=== PATIENT | female | born 1970 | race Caucasian/White ===

== ENCOUNTER 2021-09-22 00:44 | Emergency (ER) | payer SELFPAY ==
--- NOTE | ~2021-09-22 | XR_ITS ---
XR chest 2V DATE: 09/22/2021 01:43 INDICATION: Midsternal chest pain. History of coronary disease, stents. TECHNIQUE: PA and lateral views COMPARISON: None FINDINGS: Normal heart size. There is right hilar prominence. Comparison with prior chest radiograph is recommended. If not available, consider CT thorax. No pulmonary infiltrate or consolidation, pleural effusion or pulmonary vascular congestion or pneumo thorax. IMPRESSION: Asymmetric prominence of the right hilum; recommend comparison with prior chest radiograp hs. If not available, consider CT thorax Otherwise no active cardiopulmonary disease Reviewed, dictated and finalized at location A. [employer] IMPRESSION: Asymmetric prominence of the right hilum; recommend comparison with prior chest radiographs. If not available, consider CT thorax Otherwise no active cardiopulmonary disease
--- NOTE | 2021-09-22 01:04 | ECG_ITS ---
Measurements Intervals [place] Rate: 79 P: 44 SD: 175 QRS: 24 QRSD: 97 T: 9 QT: 393 QTc: 451 Interpretive Statements SINUS RHYTHM CONSIDER INFERIOR INFARCT, AGE INDETERMINATE BORDERLINE T WAVE ABNORMALITY- ANTERIOR LEADS BASELINE ARTIFACT- I, II, III, AVR, AVL, AVF, V1-V2 ABNORMAL ECG Electronically Signed On 09-22-2021 9:02:21 [employer] by Nilson Gaona D.O.
[2021-09-22 01:05] VITALS: BP 142/84; PULSE 77; RESP 18; O2SAT 100
[2021-09-22 01:14] VITALS: PULSE 67
[2021-09-22 01:29] LABS: Basophils Absolute Auto 0.1 K/mm3 (0.0-0.1); Basophils Percent Auto 0.5 % (0.2-1.2); Eosinophils Absolute Auto 0.2 K/mm3 (0-0.3); Eosinophils Percent Auto 1.4 % (0-4.4); Hematocrit 40.3 % (37.0-47.0); Hemoglobin 12.3 g/dL (12.0-15.0); Immature Granulocyte Absolute 0.06 K/mm3 (0.00-0.031); Immature Granulocyte Percent A 0.5 % (0-0.5); Lymphocytes Absolute Auto 1.55 K/mm3 (0.9-3.2); Lymphocytes Percent Auto 13.4 % (18.3-44.2); Mean Corpuscular HGB Conc 30.5 g/dl (32-36); Mean Corpuscular Hemoglobin 24.5 pg (26-34); Mean Corpuscular Volume 80.1 fl (80-100); Mean Platelet Volume 9.5 fl (7.4-10.4); Monocytes Absolute Auto 0.8 K/mm3 (0.1-0.6); Monocytes Percent Auto 6.6 % (2.6-8.5); Neutrophils Percent Auto 77.6 % (45.5-73.1); Platelet Count Result 301 k/mm3 (150-375); Red Blood Count 5.03 M/mm3 (4.2-5.4); Red Cell Distribution Width 17.9 % (11.5-14.5); White Blood Count 11.6 K/mm3 (4.5-10.0)
[2021-09-22 01:39] LABS: INR 0.9; Prothrombin Time 12.4 Seconds (11.1-14.7)
[2021-09-22 01:40] LABS: Partial Thromboplastin Time 30.7 SECONDS (22.3-36.8)
[2021-09-22 01:43] LABS: Alanine Aminotransferase 19 U/L (4-35); Albumin Level 3.8 g/dL (3.5-5.1); Alkaline Phosphatase 130 U/L (38-126); Anion Gap 3 mmol/L (8-16); Aspartate Amino Transferase 28 U/L (14-36); Bilirubin,Total 0.2 mg/dL (0.2-1.3); Blood Urea Nitrogen 8 mg/dL (7-17); Carbon Dioxide 29 mmol/L (22-30); Chloride 102 mmol/L (98-107); Estimated CRCL calculation 121 ml/min; Estimated Glomerular Filt Rate > 60; Glucose 132 mg/dL (65-110); Lipase 32 U/L (23-300); Potassium 3.8 mmol/L (3.4-5.0); Sodium 134 mmol/L (137-145)
[2021-09-22 01:53] LABS: Troponin I 0.013 ng/mL (0.000-0.034)
--- NOTE | 2021-09-22 02:11 | ED.CHESTPAIN ---
HPI - Chest Pain General Chief Complaint: Chest Pain Stated Complaint: CHEST PAIN Time Seen by Provider: 09/22/21 01:11 History of Present Illness HPI narrative: Patient is a 51-year-old female who presents ER with central chest pain. Sudden onset and sharp. No radiation. Reports history of NH with stenting 2 years ago in [place]. Reports she just moved to the area 1 month ago. She took nitroglycerin which alleviated her discomfort. No exertional chest pain. She was at rest when symptoms began. She has not establish care in this region. Patient also has a large leg wound to the left torrez that she keeps covering and does not want evaluated. She reports she tripped and fell and suffered injury 3 months ago and has not yet healed. She reports she has not sought care in regards to this leg wound. She denies all other medical problems and tries to avoid answering questions. Related Data Home Medications Medication Instructions Recorded Confirmed No Home Medications 09/22/21 09/22/21 Allergies Allergy/AdvReac Type Severity Reaction Status Date / Time No Known Allergies Allergy Verified 09/22/21 01:16 Review of Systems Review of Systems: All systems reviewed & are unremarkable except as noted in HPI and below Constitutional: Constitutional: Denies chills and Denies fever(s) Cardiovascular: Cardiovascular: Reports chest pain, Denies rapid heart rate and Denies radiating jaw, neck or arm pain Respiratory: Respiratory: Denies cough, Denies dyspnea and Denies wheezing Gastrointestinal: Gastrointestinal: Denies abdominal pain, Denies nausea and Denies vomiting Musculoskeletal: Musculoskeletal: Denies back pain and Denies muscle cramps Integumentary/Breasts: Skin/Breast: Denies erythema, Denies rash and Reports skin ulcer PMFSH Past Medical History Medical History (Updated 09/22/21 @ 02:21 by Parker Chavez MD) Coronary artery disease Surgical History Surgical History (Updated 09/22/21 @ 02:21 by Parker Chavez MD) History of percutaneous coronary intervention Social History Social History (Updated 09/22/21 @ 02:21 by Parker Chavez MD) Smoking status: Never smoker Exam Narrative: GENERAL: Well-appearing, well-nourished, and in no acute distress. HEAD: Normocephalic, atraumatic. ENT: Mucous membranes moist. CHEST: Clear to auscultation. No respiratory distress. HEART: Regular rate and rhythm. No murmur heard. Normal peripheral pulses. ABDOMEN: Soft, nontender, nondistended, normal active bowel sounds. EXTREMITIES: Normal range of motion. No edema. SKIN: Warm, dry, no rash. Large ulcerating wound to the left torrez that is chronic with some darkening of the skin surrounding it. Approximately 8 cm in diameter. NEURO: Alert and oriented x3. PSYCH: Normal mood and affect. Course Course Emergency Course: Patient up trying to ambulate her gas out of the ER. As patient go back to her room and have the patient just walk out on her own due to the fact that there are multiple critical patients in the ER. Patient prefers to leave AGAINST MEDICAL ADVICE and would like her dismissal paperwork. Patient was advised of risks of , disability, deterioration of condition. She signed paperwork understanding these risks. Vital Signs Vital signs: Vital Signs Pulse Rate 77 09/22/21 01:05 Respiratory Rate 18 09/22/21 01:05 Blood Pressure 142/84 H 09/22/21 01:05 Pulse Oximetry 100 09/22/21 01:05 Pulse Rate 77 09/22/21 01:05 Respiratory Rate 18 09/22/21 01:05 Blood Pressure 142/84 H 09/22/21 01:05 Pulse Oximetry 100 09/22/21 01:05 MDM - Chest Pain Lab Data Result diagrams: 09/22/21 01:24 09/22/21 01:23 Labs: Lab Results 09/22/21 09/22/21 09/22/21 Range/Units 01:23 01:23 01:24 WBC 11.6 H (4.5-10.0) K/mm3 RBC 5.03 (4.2-5.4) M/mm3 Hgb 12.3 (12.0-15.0) g/dL Hct 40.3 (37.0-47.0) % MCV 80.1 (80-1
--- NOTE | 2021-09-22 02:20 | PC.NURSE ---
Pt unhooked from monitoring equipment to use restroom, then was seen by ED MD leaving dept with sister. Pt initially said she was not leaving, then stated she wanted to leave. AMA form signed by pt, who verbalized understanding of risks of leaving ama.
== END 2021-09-22 02:28 | disposition left against medical advice (07) ==
PROVIDERS: Emergency Provider Emergency Medicine
DX: R07.9 Chest pain, unspecified (principal); I25.2 Old myocardial infarction; I25.10 Atherosclerotic heart disease of native coronary artery without angina pectoris; Z95.5 Presence of coronary angioplasty implant and graft; R94.31 Abnormal electrocardiogram [ECG] [EKG]
CPT/HCPCS: 36415; 71046; 80053; 83690; 84484; 85025; 85610; 85730; 93005; 99284

== ENCOUNTER 2021-10-01 14:56 | Emergency (ER) | payer SELFPAY ==
[2021-10-01 15:05] VITALS: BP 156/36; PULSE 0; RESP 16; O2SAT 73
--- NOTE | 2021-10-01 15:35 | PC.NURSE ---
SEE CODE SHEET
--- NOTE | 2021-10-01 16:07 | ED.CPR ---
HPI - CPR General Chief Complaint: Cardiac Arrest/CPR Stated Complaint: AMB Source: EMS and RN notes reviewed Mode of arrival: EMS Limitations: physical limitation History of Present Illness HPI narrative: sister reports patient had chest pain 30 minutes prior to her being found down. She apparently had taken a nitroglycerin at home. complaint: found unresponsive and stopped breathing Onset (ago): unknown Place: home Bystander CPR performed: No AED applied by bystander/chief creative officer: No Initial findings in the field: unresponsive, no respirations, no pulse and VTACH/VFIB ROSC in the field: No Associated injuries: No Associated symptoms: chest pain Known history of: CAD and GA Treatments prior to arrival: BMV, other airway device, chest compressions, defibrillated shocks # (5) and epinephrine mgs # (4) Related Data Home Medications Medication Instructions Recorded Confirmed Baby Aspirin 81 mg PO DAILY 10/01/21 10/01/21 nitroglycerin 0.4 mg PO PRN 10/01/21 10/01/21 Allergies Allergy/AdvReac Type Severity Reaction Status Date / Time No Known Allergies Allergy Unverified 10/01/21 15:23 Review of Systems Review of Systems: ROS unobtainable: Yes unobtainable due to medical condition [facility] Past Medical History Medical History (Updated 10/01/21 @ 16:33 by Phong Tobar MD) Coronary artery disease Morbid obesity Surgical History Surgical History History of percutaneous coronary intervention Social History Social History Smoking status: Never smoker Exam Const: General: acute distress severe and respiratory and patient obtunded Nutritional Appearance: obese morbidly obese Orientation/consciousness: patient obtunded HENMT: Head: normal to inspection Ears: external ears normal General nose exam: Normal external nose present Face and sinus: normal facial exam Mouth: Yes other (LMA in place) Eyes: General: appearance normal, both eyes and all related structures Pupils: Dilated pupils bilaterally and Fixed pupils bilaterally Neck: Neck: normal visual inspection Resp: Effort & Inspection: abnormal respiratory pattern other ( no spontaneous respirations) and respiratory distress Auscultation: breath sounds absent bilateral and other ( breath sounds present with bag valve mask) Cardio: Rate: other Rhythm: other ( no spontaneous heartbeat) GI: Inspection: obesity Skin: General skin exam: mottling and pallor Wounds: wounds noted maceration left lower leg bed granulating well and margins well defined Neuro: General: other ( unable to assess) Psych: Appearance: other ( unable to assess) Course Course Emergency Course: patient arrives in full arrest with CPR in progress. IO was in place in the her right lower extremity. Patient received for epi injections and 5 delivered shocks with rhythm per EMS as alternating between VFib and PEA. CPR is continued with good Doppler pulses in the left groin. A peripheral line is established. LMA is in place and auscultated breath sounds with BVM are heard. Patient immediately given 300 mg of amiodarone through the IO with history of VFib on the monitor. During resuscitation and ACLS protocol there were 2 episodes noted of VFib and shock was delivered at 120 and 200. Following shocks there was no return of spontaneous circulation. Patient given another 6 epinephrine injections per ACLS protocol every 3 minutes. CPR was continued throughout. Multiple rhythm checks showed asystole with no pulses present even with Doppler Vital Signs Vital signs: Vital Signs Pulse Rate 0 L 10/01/21 15:05 Respiratory Rate 16 10/01/21 15:05 Blood Pressure 156/36 H 10/01/21 15:05 Pulse Oximetry 73 L 10/01/21 15:05 Pulse Rate 0 L 10/01/21 16:47 Respiratory Rate 16 10/01/21 15:05 Blood Pressure 0/0 L 10/01/21 16:47 Pulse Oximetry 0 L 10/01/21 16:47
[2021-10-01 16:47] VITALS: BP 0/0; PULSE 0; O2SAT 0
== END 2021-10-01 15:12 | disposition expired ==
PROVIDERS: Emergency Provider Emergency Medicine
DX: I46.9 Cardiac arrest, cause unspecified (principal); I21.9 Acute myocardial infarction, unspecified
CPT/HCPCS: 36680; 92950; 99285; J0171; J0282; J7030